=== PATIENT | male | born 1990 | race Caucasian/White ===

== ENCOUNTER → 2019-02-08 | Outpatient (CLI) | payer OTHER, SELFPAY ==
--- NOTE | 2019-02-08 07:58 | RAD_ITS ---
STUDY: AIR-CONTRAST UPPER GI SERIES. REASON FOR EXAM: Male, 28 years old. 6 month history of epigastric pain. FLUOROSCOPY TIME (if supplied): (0:53) minutes/seconds. 15 images were obtained. TECHNIQUE: The patient ingested barium. Multiple images of the esophagus, stomach and duodenum were obtained. COMPARISON: None. FINDINGS: The esophagus is unremarkable. No mass lesion is seen. There is no evidence of obstruction. No gastroesophageal reflux. The stomach and duodenum are unremarkable as well. There is no evidence of ulceration. No mass lesion is seen. RAD/Upper GI Series Only IMPRESSION: Unremarkable air contrast upper GI series. Electronically Signed: Reyes Tillman, at 15:13 EDT , Service support ,
== END | disposition home or self-care (01) ==
LOC: RAD 07:56
PROVIDERS: Family Provider Family Medicine; PCP Family Medicine; Referring Provider Family Medicine; Visit Provider Family Medicine
DX: K21.9 Gastro-esophageal reflux disease without esophagitis (principal); R10.13 Epigastric pain
CPT/HCPCS: 74246